=== PATIENT | female | born 1980 | race Two or more races ===

== ENCOUNTER → 2019-03-08 | Outpatient (CLI) | payer OTHER | END | disposition home or self-care (01) | LOC: PRENATAL 14:59 | DX: O09.521 Supervision of elderly multigravida, first trimester (principal); O36.80X1 Pregnancy with inconclusive fetal viability, fetus 1; Z36.82 Encounter for antenatal screening for nuchal translucency ==

== ENCOUNTER 2019-09-06 03:10 | Inpatient (IN) | payer OTHER ==
[~2019-09-06] VITALS: Ht 162.6 cm; Wt 69.4 kg
[2019-09-06] MEDS ORDERED: PRENATAL TABLE1 EAC1 PO (03:18)
== END 2019-09-08 11:31 | disposition home or self-care (01) | DRG 807 ==
LOC: OBS/DEL 03:10 → LDR 08:03 → OBS/DEL 08:03 → SURG-SUITE 11:00
PROVIDERS: ADMIT Obstetrics & Gynecology; ATTEND Obstetrics & Gynecology
PROC: 10E0XZZ Delivery of Products of Conception, External Approach (ICD-10-PCS; principal; 2019-09-06)
PROC: 4A0HXFZ Measurement of Products of Conception, Cardiac Rhythm, External Approach (ICD-10-PCS; 2019-09-06)
DX: O42.92 Full-term premature rupture of membranes, unspecified as to length of time between rupture and onset of labor (principal); Z37.0 Single live birth; Z3A.38 38 weeks gestation of pregnancy